=== PATIENT | female | born 1990 ===

== ENCOUNTER 2017-04-06 19:42 | Emergency (ER) | payer MEDICAID ==
[2017-04-06 19:45] VITALS: BMI 26.6
[2017-04-06 19:49] VITALS: RESP 18; TEMP 98.4; O2SAT 100
[2017-04-06] MEDS ORDERED: Apap-Butalbital-Caffeine 325-50-40mg Tab PO STA (20:20)
[2017-04-06] MEDS ORDERED: Sodium Chloride 0.9% 500 ML IV STA (20:21)
--- NOTE | 2017-04-06 20:26 | ED PDOC ---
Addendum entered and electronically signed by Juan Isidro DO 04/06/17 22:52: Addendum Addendum: 04/06/17 22:50 ROS as stated in HPI Physical Exam: General: resting comfortably in bed speaking in full sentences ambulating without problem Head: NCAT no trauma Neck: supple Lungs: CTA b/l Cardio: RRR, no murmurs rubs or gallops Neuro: C2-12 intact, normal gait abdominal: tenderness in the RLQ in the groin area only, no rebound guarding or peritoneal signs negative psoas sign extrem: FROM, +2 pulses Skin: warm no rashes Original Note: Arrival/HPI <Juan Isidro - Last Filed: 04/06/17 22:50> <Lis Ochoa - Last Filed: 04/06/17 22:56> - General Chief Complaint: Female Genitourinary Time Seen by Provider: 04/06/17 20:10 - History of Present Illness Narrative History of Present Illness (Text): 04/06/17 20:23 26yo F w/ a PMhx of mild intermittent asthma is coming in for a 2d history of RLQ pain, most located in her right groin area that she states feels similar to when she had a ruptured ovarian cyst in the past. States the pain is sharp, stabbing, and is unremitting to ibuprofen, tylenol, and excedrin migraine that she took today. Denies any fevers/chills, headache, chest pain, shortness of breath, N/V/D, dysuria/freq/urg, or lower extremity pain/swelling. States LMP was March 16, and that periods come every 28 days regularly. Does not know if she could be , although possible because she is sexually active with her boyfriend who is at bedside. states they only have sex with each other. PMD: Surg: Spinal fusion for scoliosis Allergies: Iodine/Contrast, Sulfa antibiotics Meds: Albuterol PRN for asthma Social: Lives at home, works, denies smoking/EtOH/illicit drug use (Juan Isidro) Past Medical History - Infectious Disease Hx of Infectious Diseases: None - Cardiac Hx Cardiac Disorders: No - Pulmonary Hx Asthma: Yes (as child) - Neurological Hx Neurological Disorder: No - HEENT Hx HEENT Disorder: No - Renal Hx Renal Disorder: No - Endocrine/Metabolic Hx Endocrine Disorders: No - Hematological/Oncological Hx Blood Disorders: No - Integumentary Hx Dermatological Disorder: No - Musculoskeletal/Rheumatological Hx Fractures: Yes (left foot) - Gastrointestinal Hx Gastrointestinal Disorders: No - Genitourinary/Gynecological Hx Genitourinary Disorders: Yes Other/Comment: Ovarian cyst - Psychiatric Hx Psychophysiologic Disorder: No Hx Substance Use: No - Surgical History Other/Comment: sinus surgery - Anesthesia Hx Anesthesia: Yes Hx Anesthesia Reactions: No - Suicidal Assessment Feels Threatened In Home Enviroment: No <Juan Isidro - Last Filed: 04/06/17 22:50> - Provider Review Nursing Documentation Reviewed: Yes <Lis Ochoa - Last Filed: 04/06/17 22:56> Family/Social History Smoking Status: Never Smoked Hx Alcohol Use: Yes Hx Substance Use: No <Juan Isidro - Last Filed: 04/06/17 22:50> - Physician Review Nursing Documentation Reviewed: Yes Family/Social History: No Known Family HX <Lis Ochoa - Last Filed: 04/06/17 22:56> Allergies/Home Meds <Juan Isidro - Last Filed: 04/06/17 22:50> <Lis Ochoa - Last Filed: 04/06/17 22:56> Allergies/Adverse Reactions: Allergies Iodinated Contrast- Oral and IV Dye [Iodinated Contrast Media - IV Dye] Allergy (Verified 04/06/17 19:45) RASH Sulfa (Sulfonamide Antibiotics) Allergy (Verified 04/06/17 19:45) RASH Review of Systems - Review of Systems Constitutional: absent: Fatigue, Weight Change Eyes: absent: Vision Changes, Photophobia ENT: absent: Hearing Changes, Tinnitus Respiratory: absent: SOB, Cough, Sputum Cardiovascular: absent: Chest Pain, Palpitations Gastrointestinal: Abdominal Pain. absent: Nausea, Vomiting, Appetite Changes Genitourinary Female: absent: Frequency Musculoskeletal: absent: Arthralgias, Back Pain Skin: absent: Rash, Pruritis Neurological: Headache Endocrine: absent: Diaphoresis Hemo/Lymphatic: absent: Adenopathy Psychiatric: absent: Anxiety <Juan Isidro - Last Filed: 04/06/17 22:50> Physical Exam Vital Signs Reviewed: Yes Temperature: Afebrile Blood Pressure: Normal Pulse: Regular Respiratory Rate: Normal Appearance: Positive for: Well-Appearing, Non-Toxic, Comfortable Pain Distress: None Mental Status: Positive for: Alert and Oriented X 3 <Lis Ochoa - Last Filed: 04/06/17 22:56> Vital Signs Temp Pulse Resp BP Pulse Ox 04/06/17 19:48 98.4 F 76 18 103/70 100 Medical Decision Making <Juan Isidro - Last Filed: 04/06/17 22:50> <Lis Ochoa - Last Filed: 04/06/17 22:56> ED Course and Treatment: 04/06/17 20:32 Will order transvaginal ultrasound Urinalysis, GC/Chylm ordered Pelvic exam performed by Dr. Ochoa; visualization showed white clumpy cottage cheese thick substance in vaginal vault and cervix; R adenexal tenderness; no cervical motion tenderness elicited Will order diflucan 150mg PO for candiasis Reassess and Dispo after transvaginal US 04/06/17 21:12 Urinalysis negative 04/06/17 22:44 transvaginal ultraound was negative the patient feels better she is ambulating well and wants to go home patient advised to follow up with OBGYN doctor with any new concerns the patient is stable for discharge as per Dr. Ochoa (Juan Isidro) Patient seen and examined with resident and came up with plan together. A 26 year old female with right sided pelvic pain. Pelvic exam performed by me, chaperoned by EMT Justina, which shows normal external exam, right adenexal tenderness, white lumpy vaginal discharge consistent with vaginal candidiasis. 04/06/17 22:55 Sono with no acute findings. She reports resolution of pelvic pain and headache. Headache was slow onset with history of frequent headaches with normal neuro exam; resolved with toradol and reglan, likely migraine. Will d/c. (Lis Ochoa) - Lab Interpretations Lab Results: Lab Results 04/06/17 20:45: Urine Color Light yellow, Urine Appearance Clear, Urine pH 6.0, Ur Specific [place] 1.010, Urine Protein Negative, Urine Glucose (UA) Negative, Urine Ketones Negative, Urine Blood Negative, Urine Nitrate Negative, Urine Bilirubin Negative, Urine Urobilinogen 0.2, Ur Leukocyte Esterase Negative - RAD Interpretation Radiology Orders: 04/06/17 20:19 TRANSVAGINAL [US] Stat - Medication Orders Current Medication Orders: Discontinued Medications Fluconazole (Diflucan) 150 mg PO ONCE STA PRN Reason: Protocol Stop: 04/06/17 20:33 Last Admin: 04/06/17 21:26 Dose: 150 mg Sodium Chloride (Sodium Chloride 0.9%) 500 mls @ 999 mls/hr IV .Q31M STA Stop: 04/06/17 20:51 Last Admin: 04/06/17 21:03 Dose: 999 mls/hr Ketorolac Tromethamine (Toradol) 30 mg IVP STAT STA Stop: 04/06/17 20:22 Last Admin: 04/06/17 21:04 Dose: 30 mg Metoclopramide HCl (Reglan) 10 mg IVP STAT STA Stop: 04/06/17 20:22 Last Admin: 04/06/17 21:05 Dose: 10 mg - PA / CLINICAL PHARMACOLOGIST / Resident Statement / has reviewed & agrees with the documentation as recorded. SINTIA has examined the patient and agrees with the treatment plan. <Lis Ochoa - Last Filed: 04/06/17 22:56> Disposition/Present on Arrival - Present on Arrival Any Indicators Present on Arrival: No History of DVT/PE: No History of Uncontrolled Diabetes: No Urinary Catheter: No History of Decub. Ulcer: No History Surgical Site Infection Following: None - Disposition Have Diagnosis and Disposition been Completed?: Yes Disposition Time: 22:45 Patient Plan: Discharge <Juan Isidro - Last Filed: 04/06/17 22:50> <Lis Ochoa - Last Filed: 04/06/17 22:56> - Disposition Diagnosis: Abdominal pain Disposition: HOME/ ROUTINE Patient Problems: Current Active Problems Problem Status Onset Abdominal pain Acute Condition: FAIR Discharge Instructions (ExitCare): Acute Abdominal Pain (ED) Additional Instructions: Please follow up with your OBGyn with any new concerns. Prescriptions: Naproxen 500 mg PO BID PRN #20 tab PRN Reason: Pain, Mild (1-3)
[2017-04-06 20:53] LABS: URINE BILIRUBIN NEGATIVE (NEGATIVE); URINE BLOOD NEGATIVE (NEGATIVE); URINE GLUCOSE (UA) NEGATIVE (NEGATIVE); URINE LEUKOCYTE ESTERASE NEGATIVE Leu/uL (NEGATIVE); URINE NITRATE NEGATIVE (NEGATIVE); URINE PROTEIN NEGATIVE mg/dL (<30 mg/dL); URINE UROBILINOGEN 0.2 E.U./dL (<1 E.U./dL)
[2017-04-06 21:09] LABS: URINE APPEARANCE CLEAR (CLEAR); URINE COLOR LIGHT YELLOW (YELLOW)
--- NOTE | 2017-04-06 22:36 | US ---
EXAM: US Pelvis Complete, Transabdominal CLINICAL HISTORY: 26 years old, female; Pain; Pelvic pain; Additional info: R pelvic pain - R/O torsion TECHNIQUE: Real-time transabdominal pelvic ultrasound (complete) with image documentation. COMPARISON: No relevant prior studies available. FINDINGS: Uterus/cervix: Uterus measures 7.2 x 3.9 x 4.3 cm in size. Retroverted uterus. No myometrial mass. Endometrium: 1.3 cm in thickness. Right ovary: 2.0 x 2.5 x 1.2 cm in size. No mass. Small follicles. Normal flow. Left ovary: 2.2 x 2.5 x 1.7 cm in size. No mass. Small follicles. Normal flow. Free fluid: Probable trace free fluid within pelvis. Bladder: Unremarkable as visualized. IMPRESSION: 1. No sonographic evidence of ovarian torsion. 2. Incidental/non-acute findings are described above. EXAM: US Pelvis, Transvaginal CLINICAL HISTORY: 26 years old, female; Pain; Pelvic pain; Additional info: R pelvic pain - R/O torsion TECHNIQUE: Real-time transvaginal pelvic ultrasound (complete) with image documentation. Transvaginal imaging was used for better evaluation of the endometrium and adnexa. COMPARISON: No relevant prior studies available. FINDINGS: Uterus/cervix: Uterus measures 7.2 x 3.9 x 4.3 cm in size. Retroverted uterus. No myometrial mass. Endometrium: 1.3 cm in thickness. Right ovary: 2.0 x 2.5 x 1.2 cm in size. No mass. Small follicles. Normal flow. Left ovary: 2.2 x 2.5 x 1.7 cm in size. No mass. Small follicles. Normal flow. Free fluid: Probable trace free fluid within pelvis. Bladder: Empty bladder which cannot be evaluated with this probe.
[2017-04-06 23:15] VITALS: BP 112/67; PULSE 69
== END 2017-04-06 23:16 | disposition home or self-care (01) ==
LOC: ED 19:42
DX: R10.9 Unspecified abdominal pain (principal)
CPT/HCPCS: 76830; 81003; 87491; 87591; 96374; 96375; 99283; J1885; J2765; J7040